=== PATIENT | male | born 1975 | race Caucasian/White ===

== ENCOUNTER 2019-02-23 19:13 | Emergency (ER) | payer OTHER ==
[~2019-02-23] VITALS: Ht 175.3 cm; Wt 86.2 kg
[2019-02-23 19:14] VITALS: BP 119/85; Ht 175.3 cm; Wt 86.2 kg
== END 2019-02-23 20:24 | disposition other institution (70) ==
LOC: ED 19:13
DX: Z02.89 Encounter for other administrative examinations (principal)